=== PATIENT | female | born 1990 | race Two or more races ===

== ENCOUNTER 2019-06-01 09:22 | Emergency (ER) | payer BC, MEDICAID ==
[~2019-06-01] VITALS: Ht 167.6 cm; Wt 122.5 kg
[~2019-06-01 09:22] MED LIST: NORCO 5-325 TA1 EACH ORAL; PRILOSEC20 MG ORAL; TEGRETOL200 MG PO
--- NOTE | 2019-06-01 09:34 | NUR ---
ED Nurse Note: Patient came in from home, accompanied by mother, c/o right ear pain x 3 days. Patient states she has history of seizures, on Tegetrol. Patient is worried d/t pain might trigger sz. Last sz episode x1 month ago, per patient. VSS. No distress at time. Placed in hospital gown, and cont. desk monitor, safety precautions in place with side rails padded. Will continue to monitor.
[2019-06-01 09:39] VITALS: BP 145/96
--- NOTE | 2019-06-01 09:40 | NUR ---
ED Nurse Note: ERMD at bedside
[2019-06-01] MEDS ORDERED: Cortisporin OTIC Susp 10ml RIGHT EAR ONE (09:45)
[2019-06-01] MEDS ORDERED: LORazepam Inj 2mg/ml 1ml IV ONE (09:45)
[2019-06-01] MEDS ORDERED: Ketorolac 30mg Inj IV ONE (09:45)
--- NOTE | 2019-06-01 09:50 | Emergency Room Report ---
History of Present Illness General Chief Complaint: Earache Source: Patient Present Illness HPI Patient presents with 2 problems. The first problem is right ear pain. She is been trying to clean it. When she touches the side of her face or her ear hurts very painful. She denies any fevers or chills. There is no discharge or drainage from the ear. She says she has decreased hearing on that side also. The second problem is that she feels that she may be on the verge of having a seizure. The last seizure she had was a month ago. The ear pain is not related to that. She usually has symptoms of involuntary movement of her left hand prior to seizing. She did not take her Tegretol dose this morning. The patient had a miscarriage in 2014. Since that time her menstruation has been irregular. No sore throat, chest pain, palpitations, nausea, vomiting, diarrhea, dysuria, abdominal pain, shortness of breath, joint pain, rashes, depression, anxiety, visual changes, dizziness, headache. Allergies: Coded Allergies: No Known Allergies (Unverified , 02/01/14) Patient History Past Medical History: see triage record Social History: Denies: smoking - Former Social History Narrative with Mother Last Menstrual Period: 04/2019 Now: No Reviewed Nursing Documentation: PMH: Agreed; PSxH: Agreed Nursing Documentation-PMH Past Medical History: No History, Except For Hx Seizures: Yes Review of Systems All Other Systems: negative except mentioned in HPI Physical Exam Vital Signs Date Time Temp Pulse Resp B/P (MAP) Pulse Ox O2 Delivery O2 Flow Rate FiO2 06/01/19 09:25 99.7 102 20 135/91 (106) 97 Room Air Sp02 EP Interpretation: reviewed, normal General Appearance: well appearing, no apparent distress, GCS 15 Head: normocephalic Eyes: right eye other - Somewhat of a tick; bilateral eye normal inspection, bilateral eye PERRL, bilateral eye EOMI ENT: normal pharynx, moist mucus membranes - No lingual macerations, other - Canal swelling right with pinna tenderness unable to fully visualize tympanic membrane and reported decreased hearing on that side Neck: full range of motion, supple, other - No mastoid tenderness Respiratory: lungs clear, normal breath sounds Cardiovascular #1: regular rate, rhythm Cardiovascular #2: 2+ radial (R) Gastrointestinal: normal inspection, normal bowel sounds, non tender, no mass, non-distended Musculoskeletal: back normal, gait/station normal, normal range of motion Neurologic: alert, oriented x3, contact worker lithography III-XII nml as tested - See eye exam, motor strength/tone normal, DTRs symmetric, sensory intact, cerebellar normal, speech normal Psychiatric: mood/affect normal Skin: no rash, normal color, warm/dry Medical Decision Making Diagnostic Impression: Primary Impression: Seizure Additional Impression: Otitis externa Qualified Codes: H60.311 - Diffuse otitis externa, right ear ER Course Patient presents with 2 problems. Ear pain clinically appears to be otitis externa. Unable to fully visualize the tympanic membrane. Ear wick and topical antibiotics are indicated. Also the patient will be treated for pain. The second problem of feeling on the verge of having a seizure needs evaluation with labs. The patient will be treated with a dose of Ativan. Depending on the Tegretol level she may need to have this given. The patient is placed on a monitoring analyst. Labs remarkable for slightly elevated white count. Tegretol level 0. Tegretol given. Your weight placed with Cortisporin instilled. Pain improved. Discussed treatment plan with patient and mother. Advised them to obtain a medication dispenser box. Patient stable for outpatient observation and treatment. Laboratory Tests Test 06/01/19 09:50 White Blood Count 12.1 K/UL (4.8-10.8) H Red Blood Count 4.69 M/UL (4.20-5.40) Hemoglobin 13.2 G/DL (12.0-16.0) Hematocrit 39.8 % (37.0-47.0) Mean Corpuscular Volume 85 FL (80-99) Mean Corpuscular Hemoglobin 28.0 PG (27.0-31.0) Mean Corpuscular Hemoglobin Concent 33.1 G/DL (32.0-36.0) Red Cell Distribution Width 11.6 % (11.6-14.8) Platelet Count 273 K/UL (150-450) Mean Platelet Volume 6.9 FL (6.5-10.1) Neutrophils (%) (Auto) 80.2 % (45.0-75.0) H Lymphocytes (%) (Auto) 12.4 % (20.0-45.0) L Monocytes (%) (Auto) 5.5 % (1.0-10.0) Eosinophils (%) (Auto) 1.2 % (0.0-3.0) Basophils (%) (Auto) 0.6 % (0.0-2.0) Sodium Level 139 MMOL/L (136-145) Potassium Level 4.1 MMOL/L (3.5-5.1) Chloride Level 105 MMOL/L (98-107) Carbon Dioxide Level 25 MMOL/L (21-32) Anion Gap 9 mmol/L (5-15) Blood Urea Nitrogen 5 mg/dL (7-18) L Creatinine 0.7 MG/DL (0.55-1.30) Estimate Glomerular Filtration Rate > 60 mL/min (>60) Glucose Level 110 MG/DL (74-106) H Calcium Level 8.2 MG/DL (8.5-10.1) L Total Bilirubin 0.3 MG/DL (0.2-1.0) Aspartate Amino Transferase (AST) 15 U/L (15-37) Alanine Aminotransferase (ALT) 26 U/L (12-78) Alkaline Phosphatase 104 U/L (46-116) Total Creatine Kinase 60 U/L (26-308) Total Protein 7.7 G/DL (6.4-8.2) Albumin 3.4 G/DL (3.4-5.0) Globulin 4.3 g/dL Albumin/Globulin Ratio 0.8 (1.0-2.7) L Carbamazepine (Tegretol) Level < 2.0 ug/mL (4.0-12.0) L Rhythm Strip Diag. Results EP Interpretation: yes Rhythm: NSR, no PVC's, no ectopy Last Vital Signs Date Time Temp Pulse Resp B/P (MAP) Pulse Ox O2 Delivery O2 Flow Rate FiO2 06/01/19 12:49 98.2 98 18 121/82 100 Room Air Status: improved Disposition: HOME, SELF-CARE Condition: Improved Scripts Ibuprofen* (MOTRIN*) 600 Mg Tablet 600 MG ORAL Q6H PRN for For Pain, #20 TAB 0 Refills Prov: Brice Ordoñez MD 06/01/19 Hydrocodone Bit/Acetaminophen 5-325* (NORCO 5-325*) 1 Each Tablet 1 TAB ORAL Q6H PRN for For Pain, #6 TAB 0 Refills Prov: Brice Ordoñez MD 06/01/19 Brice Ordoñez MD Jun 01, 2019 09:50
--- NOTE | 2019-06-01 10:03 | NUR ---
ED Nurse Note: IV access established; patient tolerated well. Blood sample collected, sent to lab.
[2019-06-01 10:05] LABS: BASOPHILS % (AUTO) 0.6 % (0.0-2.0); EOSINOPHILS % (AUTO) 1.2 % (0.0-3.0); HEMATOCRIT 39.8 % (37.0-47.0); HEMOGLOBIN 13.2 G/DL (12.0-16.0); LYMPHOCYTES % (AUTO) 12.4 % (20.0-45.0); MEAN CORPUSCULAR VOLUME 85 FL (80-99); MONOCYTES % (AUTO) 5.5 % (1.0-10.0); NEUTROPHILS % (AUTO) 80.2 % (45.0-75.0); PLATELET COUNT 273 K/UL (150-450); RED BLOOD COUNT 4.69 M/UL (4.20-5.40); RED CELL DISTRIBUTION WIDTH 11.6 % (11.6-14.8); WHITE BLOOD COUNT 12.1 K/UL (4.8-10.8)
[2019-06-01 10:15] LABS: ANION GAP 9 mmol/L (5-15); BLOOD UREA NITROGEN 5 mg/dL (7-18); CALCIUM 8.2 MG/DL (8.5-10.1); CARBON DIOXIDE 25 MMOL/L (21-32); CHLORIDE 105 MMOL/L (98-107); CREATININE 0.7 MG/DL (0.55-1.30); POTASSIUM 4.1 MMOL/L (3.5-5.1); SODIUM 139 MMOL/L (136-145)
[2019-06-01 10:22] LABS: ALANINE AMINOTRANSFERASE 26 U/L (12-78); ALBUMIN 3.4 G/DL (3.4-5.0); ALBUMIN/GLOBULIN RATIO 0.8 (1.0-2.7); ALKALINE PHOSPHATASE 104 U/L (46-116); ASPARTATE AMINO TRANSFERASE 15 U/L (15-37); BILIRUBIN,TOTAL 0.3 MG/DL (0.2-1.0); CREATINE KINASE 60 U/L (26-308)
[2019-06-01 10:49] VITALS: BP 125/76
[2019-06-01] MEDS ORDERED: carBAMazepine 200mg tab ORAL ONE (11:15)
[2019-06-01] MEDS ORDERED: IBUPROFEN600 MG ORAL (12:25)
[2019-06-01] MEDS ORDERED: NORCO 5-325 TA1 EACH ORAL (12:25)
--- NOTE | 2019-06-01 12:45 | NUR ---
ER DISCHARGE NOTE: Patient is cleared to be discharged per ERMD, pt is aox4, on room air, with stable vital signs. pt was given dc and prescription instructions, pt was able to verbalize understanding, pt id band and iv site removed without complications. pt is able to ambulate with steady gait. pt took all belongings.
[2019-06-01 12:49] VITALS: BP 121/82
== END 2019-06-01 12:49 | disposition home or self-care (01) ==
LOC: EMR 09:46
DX: H60.311 Diffuse otitis externa, right ear (principal); G40.909 Epilepsy, unspecified, not intractable, without status epilepticus; Z87.891 Personal history of nicotine dependence
CPT/HCPCS: 80053; 80156; 82550; 82962; 85025; 96374; 96375; J1885; Z7502; 36415; 99284

== ENCOUNTER 2020-04-05 15:43 | Emergency (ER) | payer MEDICAID ==
[~2020-04-05] VITALS: Ht 167.6 cm; Wt 104.3 kg
[~2020-04-05 15:43] MED LIST changes: +IBUPROFEN600 MG ORAL
[2020-04-05] MEDS ORDERED: Ketorolac 30mg Inj IV ONE (16:00)
[2020-04-05] MEDS ORDERED: Docusate 100mg cap ORAL ONE (16:00)
[2020-04-05] MEDS ORDERED: Omnipaque-300 100ml vial INJ PRN (16:00)
[2020-04-05 17:01] LABS: BASOPHILS % (AUTO) 0.9 % (0.0-2.0); EOSINOPHILS % (AUTO) 5.3 % (0.0-3.0); HEMATOCRIT 41.9 % (37.0-47.0); HEMOGLOBIN 13.7 G/DL (12.0-16.0); LYMPHOCYTES % (AUTO) 22.4 % (20.0-45.0); MEAN CORPUSCULAR VOLUME 85 FL (80-99); MONOCYTES % (AUTO) 4.5 % (1.0-10.0); NEUTROPHILS % (AUTO) 66.8 % (45.0-75.0); PLATELET COUNT 337 K/UL (150-450); RED BLOOD COUNT 4.95 M/UL (4.20-5.40); RED CELL DISTRIBUTION WIDTH 13.2 % (11.6-14.8); WHITE BLOOD COUNT 13.5 K/UL (4.8-10.8)
[2020-04-05 17:18] LABS: ANION GAP 12 mmol/L (5-15); BLOOD UREA NITROGEN 13 mg/dL (7-18); CALCIUM 8.8 MG/DL (8.5-10.1); CARBON DIOXIDE 25 MMOL/L (21-32); CHLORIDE 103 MMOL/L (98-107); CREATININE 0.9 MG/DL (0.55-1.30); POTASSIUM 3.3 MMOL/L (3.5-5.1); SODIUM 140 MMOL/L (136-145)
[2020-04-05 17:28] LABS: ALANINE AMINOTRANSFERASE 24 U/L (12-78); ALBUMIN 3.9 G/DL (3.4-5.0); ALBUMIN/GLOBULIN RATIO 0.9 (1.0-2.7); ALKALINE PHOSPHATASE 113 U/L (46-116); ASPARTATE AMINO TRANSFERASE 19 U/L (15-37); BILIRUBIN,TOTAL 0.2 MG/DL (0.2-1.0)
[2020-04-05 17:34] LABS: APPEARANCE,URINE CLEAR; BILIRUBIN, URINE NEGATIVE (NEGATIVE); GLUCOSE, URINE (UA) NEGATIVE (NEGATIVE); KETONES,URINE 1+ (NEGATIVE); LEUKOCYTE ESTERASE ,URINE 1+ (NEGATIVE); NITRITE,URINE NEGATIVE (NEGATIVE); PH,URINE 6 (4.5-8.0); PROTEIN,URINE NEGATIVE (NEGATIVE); UROBILINOGEN,URINE NORMAL MG/DL (0.0-1.0)
[2020-04-05 17:39] LABS: COLOR,URINE YELLOW
[2020-04-05 18:02] VITALS: BP 133/82
--- NOTE | 2020-04-05 18:03 | NUR ---
ED Nurse Note:pt. came with c/o abdominal pain nausea vomiting, VSS, blood sent to labs, given IV fluids and meds
--- NOTE | 2020-04-05 18:25 | Diagnostic Imaging Report ---
EXAM: CT Abdomen and Pelvis With Intravenous Contrast CLINICAL HISTORY: ABD PAIN TECHNIQUE: Axial computed tomography images of the abdomen and pelvis with intravenous contrast. CTDI is 21.9 mGy and DLP is 1130.4 mGy-cm. One or more of the following dose reduction techniques were used: automated exposure control, adjustment of the mA and/or kV according to patient size, use of iterative reconstruction technique. Coronal and sagittal reformatted images were created and reviewed. COMPARISON: No relevant prior studies available. FINDINGS: Lung bases: Unremarkable. No mass. No consolidation. ABDOMEN: Liver: Unremarkable. No mass. Gallbladder and bile ducts: Unremarkable. No calcified stones. No ductal dilation. Pancreas: Unremarkable. No mass. No ductal dilation. Spleen: Unremarkable. No splenomegaly. Adrenals: Unremarkable. No mass. Kidneys and ureters: Unremarkable. No solid mass. No hydronephrosis. Stomach and bowel: Unremarkable. No obstruction. No mucosal thickening. PELVIS: Appendix: No findings to suggest acute appendicitis. Bladder: Unremarkable. No mass. Reproductive: Unremarkable as visualized. ABDOMEN and PELVIS: Intraperitoneal space: Unremarkable. No free air. No significant fluid collection. Bones/joints: No acute fracture. No dislocation. Soft tissues: Unremarkable. Vasculature: Unremarkable. No abdominal aortic aneurysm. Lymph nodes: Unremarkable. No enlarged lymph nodes. IMPRESSION: 1. No acute abnormality definitively identified to account for patient presentation. 2. Unremarkable study.
--- NOTE | 2020-04-05 18:41 | Emergency Room Report ---
History of Present Illness General Chief Complaint: Abdominal Pain Source: Patient Present Illness HPI 29-year-old female with history of gastritis here complaining days of epigastric abdominal pain, constipation few bouts of nonbloody emesis. Reports that the pain is now radiating to back. Reports that she often eats greasy acidic food. Denies any urinary symptoms. Denies fever chills diarrhea. Denies any dizziness and hemoptysis. Has not taken medication for symptom relief. Denies tobacco smoke, marijuana use, alcohol intake. Allergies: Coded Allergies: No Known Allergies (Unverified , 02/01/14) COVID-19 Screening Contact w/high risk pt: No Experienced COVID-19 symptoms?: No COVID-19 Testing performed RADIATION THERAPY TECHNICIAN: No Patient History Past Medical History: see triage record Past Surgical History: none Pertinent Family History: none Last Menstrual Period: 2 weeks Now: No Immunizations: UTD Reviewed Nursing Documentation: PMH: Agreed; PSxH: Agreed Nursing Documentation-PMH Past Medical History: No History, Except For Hx Gastrointestinal Problems: Yes - constipation Hx Seizures: Yes Review of Systems All Other Systems: negative except mentioned in HPI Physical Exam Vital Signs Date Time Temp Pulse Resp B/P (MAP) Pulse Ox O2 Delivery O2 Flow Rate FiO2 04/05/20 15:44 97.9 84 18 133/82 (99) 99 Sp02 EP Interpretation: reviewed, normal General Appearance: no apparent distress, alert, GCS 15, non-toxic Head: normocephalic, atraumatic Eyes: bilateral eye normal inspection, bilateral eye PERRL ENT: hearing grossly normal, normal pharynx, no angioedema, normal voice Neck: full range of motion, supple/symm/no masses Respiratory: chest non-tender, lungs clear, normal breath sounds, speaking full sentences Cardiovascular #1: regular rate, rhythm, no edema Gastrointestinal: normal bowel sounds, non tender, soft, non-distended, no guarding, no rebound Rectal: deferred Genitourinary: no CVA tenderness Musculoskeletal: back normal Neurologic: alert, motor strength/tone normal, oriented x3, sensory intact, responsive, speech normal Psychiatric: judgement/insight normal, memory normal, mood/affect normal, no suicidal/homicidal ideation Skin: no rash Lymphatic: no adenopathy Medical Decision Making PA Attestation ALL Diagnosis and treatment plan reviewed and discussed with my supervising physician Dr. Robbins Diagnostic Impression: Primary Impression: Gastritis Additional Impression: Constipation ER Course 29-year-old female with history of gastritis here complaining days of epigastric abdominal pain, constipation few bouts of nonbloody emesis. Reports that the pain is now radiating to back. Reports that she often eats greasy acidic food. Denies any urinary symptoms. Denies fever chills diarrhea. Denies any dizziness and hemoptysis. Has not taken medication for symptom relief. Denies tobacco smoke, marijuana use, alcohol intake. Ddx considered but are not limited to: appendicitis, cholecystis, gastritis, gasthroentritis, UTI, pylonephritis, SBO, diverticulitis, constipation Vital signs: are WNL, pt. is afebrile H&PE are most consistent with: Constipation, gastritis ORDERS: abdominal CT, abdominal pain set, Colace, lactulose, Omeprazole ED INTERVENTIONS: NS bolus, Toradol, Zofran, Pepcid, Colace DISCHARGE: At this time pt. is stable for d/c to home. Will provide printed patient care instructions, and any necessary prescriptions. Care plan and follow up instructions have been discussed with the patient prior to discharge. Patient take medication as directed, increase oral hydration and fiber intake, follow primary doctor for H. pylori testing, referral to file clerk data entry for possible endoscopy to rule out gastric versus duodenal ulcer. If worsening symptoms return to the emergency room. CT/MRI/US Diagnostic Results CT/MRI/US Diagnostic Results : Imaging Test Ordered: CT abd/pelvis with contrast Impression COMPARISON: No relevant prior studies available. FINDINGS: Lung bases: Unremarkable. No mass. No consolidation. ABDOMEN: Liver: Unremarkable. No mass. Gallbladder and bile ducts: Unremarkable. No calcified stones. No ductal dilation. Pancreas: Unremarkable. No mass. No ductal dilation. Spleen: Unremarkable. No splenomegaly. Adrenals: Unremarkable. No mass. Kidneys and ureters: Unremarkable. No solid mass. No hydronephrosis. Stomach and bowel: Unremarkable. No obstruction. No mucosal thickening. PELVIS: Appendix: No findings to suggest acute appendicitis. Bladder: Unremarkable. No mass. Reproductive: Unremarkable as visualized. ABDOMEN and PELVIS: Intraperitoneal space: Unremarkable. No free air. No significant fluid collection. Bones/joints: No acute fracture. No dislocation. Soft tissues: Unremarkable. Vasculature: Unremarkable. No abdominal aortic aneurysm. Lymph nodes: Unremarkable. No enlarged lymph nodes. IMPRESSION: 1. No acute abnormality definitively identified to account for patient presentation. 2. Unremarkable study. Last Vital Signs Date Time Temp Pulse Resp B/P (MAP) Pulse Ox O2 Delivery O2 Flow Rate FiO2 04/05/20 18:05 97.9 04/05/20 18:02 84 18 04/05/20 18:02 133/82 99 Disposition: HOME, SELF-CARE Condition: Stable Scripts Acetaminophen* (TYLENOL EXTRA STRENGTH*) 500 Mg Tablet 500 MG ORAL Q8H PRN for Prn Headache/Temp > 101, #30 TAB 0 Refills Prov: Angy Felix 04/05/20 Lactulose (LACTULOSE*) 20 Gm/30 Ml Solution 30 ML ORAL TID, #450 ML 0 Refills Prov: Angy Felix 04/05/20 Docusate Sodium* (COLACE*) 100 Mg Capsule 100 MG ORAL DAILY, #20 CAP Prov: Angy Felix 04/05/20 Patient Instructions: Abdominal Pain, Adult, Gastritis, Adult, [id number] Additional Instructions: Take medication as directed, follow-up with file clerk data entry for possible endoscopy as well as with your primary doctor for H. pylori testing. If worsening symptom return to the emergency room. Increase fiber intake, avoid spicy, acidic, greasy. Angy Felix Apr 05, 2020 18:41
[2020-04-05] MEDS ORDERED: TYLENOL EXTRA500 MG ORAL (18:44)
[2020-04-05] MEDS ORDERED: COLACE100 MG ORAL (18:44)
[2020-04-05] MEDS ORDERED: LACTULOSE20 GM/301 ORAL (18:44)
[2020-04-05 19:00] VITALS: BP 133/82
== END 2020-04-05 19:00 | disposition home or self-care (01) ==
LOC: EMR 16:00
DX: K29.70 Gastritis, unspecified, without bleeding (principal); K59.00 Constipation, unspecified; G40.909 Epilepsy, unspecified, not intractable, without status epilepticus
CPT/HCPCS: 36415; 74177; 80053; 80307; 81003; 81025; 83690; 84484; 85025; 85610; 85730; 96361; 96374; 96375; G0480; J1885; J2405; J7030; Q9965; S0028; Z7502; 99284; J8499